=== PATIENT | female | born 1935 | race Caucasian/White ===

== ENCOUNTER → 2016-09-20 | Outpatient (CLI) | payer MEDICARE, OTHER ==
[~2016-09-20] MED LIST: DIPH1TAB36 PO; DULO1CAP3 PO; FERR1TAB36 PO; GABA100C4 PO; GABA300C5 PO; HYDR-3516 PO; LISI-519 PO; MISC-163; NEPHRO PO; UMEC1AER INH; VITA2000 PO; WALKER WHEELS/F1 MIS; XARE10TA PO
[2016-09-20 08:41] LABS: AUTOMATED NEUTROPHIL # 5.6 TH/MM3 (1.8-7.7); BASOPHIL % 0.5 % (0.0-2.0); EOSINOPHIL # 0.1 TH/MM3 (0-0.4); EOSINOPHIL % 1.8 % (0.0-4.0); HEMATOCRIT 38.2 % (35.0-46.0); HEMO FLAGS DIFF FINAL; LYMPH % 24.4 % (9.0-44.0); MEAN CELL VOLUME 88.7 FL (80.0-100.0); MEAN CORPUSCULAR HEMOGLOBIN 29.9 PG (27.0-34.0); MEAN CORPUSCULAR HGB CONC 33.7 % (32.0-36.0); MONO % 6.1 % (0.0-8.0); NEUT % 67.2 % (16.0-70.0); PLATELET COUNT 393 TH/MM3 (150-450); RED BLOOD COUNT 4.31 MIL/MM3 (4.00-5.30); WHITE BLOOD COUNT 8.3 TH/MM3 (4.0-11.0)
[2016-09-20 08:50] LABS: INTERNATIONAL NORMALIZED RATIO 1.1 RATIO
[2016-09-20 09:18] LABS: BACTERIA, URINE MANY /hpf; BLOOD, URINE NEG (NEG); COMMENT (UR) CATH-CULTURE IND; CULTURE IF INDICATED CATH CULTURE IND; GLUCOSE,URINE NEG (NEG); HYALINE CAST, URINE 4 /lpf (RARE); KETONE, URINE NEG (NEG); MUCUS URINE FEW /lpf (OCC); NITRITE,URINE NEG (NEG); SQUAMOUS EPITHELIAL CELL URINE 1 /hpf (0-5); URINE COLOR YELLOW (YELLW/STRAW)
[2016-09-20 09:32] LABS: BICARBONATE 27.3 MEQ/L (21.0-32.0)
== END ==
LOC: CPRE 07:46
PROVIDERS: ATTEND Orthopaedic Surgery Orthopaedic Surgery of the Spine
DX: Z01.810 Encounter for preprocedural cardiovascular examination (principal); Z01.812 Encounter for preprocedural laboratory examination; Z01.818 Encounter for other preprocedural examination; Z79.01 Long term (current) use of anticoagulants; M16.11 Unilateral primary osteoarthritis, right hip; B96.20 Unspecified Escherichia coli [E. coli] as the cause of diseases classified elsewhere; R82.99 Other abnormal findings in urine
CPT/HCPCS: 36415; 80048; 81001; 85025; 85610; 85730; 87077; 87086; 87186

== ENCOUNTER 2016-09-30 15:45 | Inpatient (IN) | payer MEDICARE, OTHER ==
[~2016-09-30] VITALS: Ht 154.9 cm; Wt 68.0 kg
[~2016-09-30 15:45] MED LIST changes: -HYDR-3516 PO; -MISC-163; -WALKER WHEELS/F1 MIS; -XARE10TA PO
[2016-10-01] MEDS ORDERED: INSULIN HUMAN REGULAR 1,000 UNITS/10 ML VIAL SQ PRN (06:00)
[2016-10-01] MEDS ORDERED: LACTATED RINGER'S 1000 ML IV PRN (06:00)
[2016-10-01] MEDS ORDERED: ceFAZolin 2 GM PREMIX 50 ML IV SCH (06:00)
[2016-10-01] MEDS ORDERED: CHLORHEXIDINE GLUCONATE 2 % 1 PACK (2 CLOTHS) TOPICAL PRN (06:00)
[2016-10-01] MEDS ORDERED: VANCOMYCIN 1000 MG/NS 250 ML (for <70 kg) IV SCH ×2 (06:00)
[2016-10-01] MEDS ORDERED: TRANEXAMIC ACID INJ 590 MG in SODIUM CHLORIDE 0.9% INJ 100 ML IV SCH (06:00)
[2016-10-01] MEDS ORDERED: EXPAREL PERI-ARTICULAR INJECTION (TOTAL VOL. 60 ML) P-ARTICULR SCH ×2 (06:00)
[2016-10-01] MEDS ORDERED: SODIUM CHLORID 0.9% 500 ML IV PRN (06:00)
[2016-10-01] MEDS ORDERED: POVIDONE IODINE 7.5% SCRUB 118 ML BOTTLE TOPICAL SCH (06:00)
[2016-10-01] MEDS ORDERED: METOPROLOL TARTRATE 25 MG TAB PO PRN (06:00)
[2016-10-01] MEDS ORDERED: POVIDONE IODINE 5% (ANTISEPSIS KIT) 4 APPLICATIONS EACH NARE PRN (06:00)
[2016-10-01 06:20] VITALS: BP 142/71; PULSE 78; RESP 20; TEMP 98.2; O2SAT 96
[2016-10-01 06:24] LABS: BLOOD, URINE SMALL (NEG); GLUCOSE,URINE NEG (NEG); KETONE, URINE NEG (NEG); MUCUS URINE FEW /lpf (OCC); NITRITE,URINE NEG (NEG); PH, URINE 6.5 (5.0-8.5); SQUAMOUS EPITHELIAL CELL URINE 2 /hpf (0-5); URINE COLOR YELLOW (YELLW/STRAW)
[2016-10-01 06:25] LABS: COMMENT (UR) CATH-CULT NOT IND; CULTURE IF INDICATED CATH CULTURE NOT IND
[2016-10-01] MEDS ORDERED: GENTAMICIN SULFATE 80 MG/2 ML VIAL ONE (07:39)
[2016-10-01] MEDS ORDERED: MIDAZOLAM HCL 2 MG/2 ML VIAL ONE (08:14)
[2016-10-01] MEDS ORDERED: DEXAMETHASONE SOD PHOS 4 MG/ML VIAL ONE (08:15)
[2016-10-01] MEDS ORDERED: FAMOTIDINE 20 MG/2 ML VIAL ONE (08:15)
[2016-10-01] MEDS ORDERED: ACETAMINOPHEN 1000 MG/100 ML VIAL IV ONE (08:17)
[2016-10-01] MEDS ORDERED: diphenhydrAMINE HCL 50 MG/ML VIAL ONE (08:37)
--- NOTE | 2016-10-01 10:28 | PD.OP ---
cc: Moe Dang MD Operative Report Date of Surgery: October 01, 2016 Preoperative Diagnosis: Osteoarthritis right hip, severe. Protrusio right acetabulum, mild Postoperative Diagnosis: Same Procedure: Right total hip replacement arthroplasty, direct anterior exposure Anesthesia: Gen. Surgeon: Moe Dang Commercial Leasing Manager(s): KASSI Betts Operation and Findings: EBL: 200 cc INDICATION: This patient presents with significant hip pain related to severe osteoarthritis right hip with protrusio.. Despite extensive conservative care this patient continues to be painful and now presents for surgical treatment. NOTE: Christine Betts PA-C was present for the entire surgical procedure as my microbiology lab assistant. In my medical opinion her skill and care was necessary for the proper management of this patient. COMPONENTS: COMPANY: [employer] CUP: [place], 50 mm, 100 series, gription surface LINER: Altrx 32 mm, neutral STEM: [place], size 12, standard offset, hydroxyapatite-coated HEAD: 32 mm, +5, 12/14 taper PROCEDURE: This patient was brought to the operating room and anesthetized in the supine position and positioned on the fracture table with both legs held extended. The right hip and leg was scrubbed with alcohol followed by Hibiclens followed by ChloraPrep and draped sterilely. Antibiotics were given within routine time window and a timeout was done. A 4 inch incision was made starting 2 cm distal and 2 cm lateral to the anterior superior iliac spine. The fascia george was opened longitudinally. The interval between the fascia george and the rectus was opened down to the capsule of the hip joint. Retractors were positioned allowing good visualization of the capsule. This was opened longitudinally and flaps were created. Stay sutures were utilized. Exposure was excellent. The neck was cut at the proper location using fluoroscopy as a guide. The head was removed. Deep retractors were positioned allowing good visualization of the acetabulum. Acetabulum was deepened down to the floor starting with a proper size reamer and reaming up to 49 mm. A trial was utilized. Fluoroscopy was used to check position and confirmed satisfactory alignment. The rim was reamed with a 50 mm reamer and the final cup was positioned in approximately 20 of anteversion and 40-45 of abduction. Position was satisfactory. A single hole eliminator was positioned followed by the final liner. The lifting hook was utilized. The leg was dropped to the floor, maximally externally rotated and brought across the midline. Retractors were positioned. A box osteotome was utilized followed by progressive broaching to the proper stem size. Trial reduction showed excellent alignment and fit. With 60 of external rotation the leg was dropped to the floor without evidence of anterior subluxation. The wound was irrigated. The final stem was inserted and was found to be very stable. The final reduction using the final head. Stability was as previously noted. Intraoperative x-rays were taken. The wound was irrigated copiously. Hemostasis was controlled. Local anesthesia was utilized. The capsule was repaired with #2 Tycron sutures. The fascia george was repaired with running 0 PDS on a loop. Subcutaneous tissue was approximated with 2-0 Vicryl and skin with running intradermal 3-0 Vicryl followed by Steri-Strips. A sterile dressing was applied. The patient was awakened and taken to the recovery room in satisfactory condition. FINDINGS: There was mild protrusio. Bone quality was satisfactory. No complication was appreciated. The final reconstruction was very stable. Moe Dang MD October 01, 2016 10:28
[2016-10-01] MEDS ORDERED: Post-op Orders (for Pharmacy) MISC XX ONE (10:30)
[2016-10-01] MEDS ORDERED: MISCELLANEOUS NURSING INFORMATION XX PRN (10:30)
[2016-10-01] MEDS ORDERED: SODIUM CHLORIDE 0.9% FLUSH 5 ML FLUSH IVF PRN (10:30)
[2016-10-01] MEDS ORDERED: DIPHENHYDRAMINE ACETAMINOPHEN PO PRN (10:30)
[2016-10-01] MEDS ORDERED: MORPHINE SULFATE 30 MG/30 ML PCA IV SCH (10:30)
[2016-10-01] MEDS ORDERED: MORPHINE SULFATE 8 MG/ML INJ IM PRN (10:30)
[2016-10-01] MEDS ORDERED: NALOXONE HCL 0.4 MG/ML AMP IV PRN (10:30)
[2016-10-01] MEDS ORDERED: ACETAMINOPHEN/HYDROcodone 325 MG/5 MG TAB PO PRN (10:30)
[2016-10-01] MEDS ORDERED: MISCELLANEOUS PHARMACY INFORMATION XX ONE (10:30)
[2016-10-01] MEDS ORDERED: XARE10TA PO (10:31)
[2016-10-01] MEDS ORDERED: HYDR-3516 PO (10:31)
[2016-10-01] MEDS ORDERED: DO NOT ADM ANY ANTICOAGULANT DRUGS PRN (11:00)
[2016-10-01] MEDS: LACTATED RINGER'S 1000 ML INJ 1,000 ML IV SCH ×2 (11:10→20:40)
[2016-10-01] MEDS ORDERED: *morphine SULFATE 8 MG/ML PERIprocedure ONLY ONE (11:23)
[2016-10-01] MEDS ORDERED: fentaNYL CITRATE 250 MCG/5 ML AMP ONE (11:38)
[2016-10-01] MEDS ORDERED: LACTATED RINGER'S 1000 ML INJ 1,000 ML IV ONE (12:00)
[2016-10-01] MEDS ORDERED: ONDANSETRON HCL 4 MG/2 ML VIAL IV PUSH ONE (12:00)
[2016-10-01] MEDS ORDERED: PROPOFOL 200 MG/20 ML AMP IV ONE (12:00)
[2016-10-01] MEDS ORDERED: PHENYLEPH/NS 1000 MCG/10 ML SYR IV ONE (12:00)
[2016-10-01] MEDS ORDERED: NEOSTIGMINE 3 MG/3 ML SYR IV ONE (12:00)
[2016-10-01] MEDS ORDERED: ePHEDrine/NS 25 MG/5 ML SYR IV ONE (12:00)
[2016-10-01 12:50] VITALS: BP 126/69; PULSE 78; RESP 18; TEMP 96; O2SAT 97
[2016-10-01] MEDS: PCA - TOTAL MG MORPHINE DELIVERED PER SHIFT SCH ×2 (13:48→20:37)
[2016-10-01 16:00] VITALS: BP 111/54; PULSE 82; RESP 18; TEMP 96.4; O2SAT 99
--- NOTE | 2016-10-01 16:58 | RADRPT ---
EXAM DATE/TIME: 10/01/2016 08:51 [facility] COMPARISON: HIP RIGHT (AP&LAT 2/3VWS) WO AP PELVIS, May 03, 2016, 14:24. INDICATIONS : Right anterior hip replacement. MEDICAL HISTORY : Hypertension. Osteoarthritis. Chronic obstructive pulmonary disease. SURGICAL HISTORY : None. ENCOUNTER: Initial ACUITY: 1 day PAIN SCORE: Non-responsive. LOCATION: Right hip. FINDINGS: 2 intraoperative spot images of the right hip. Total hip prosthesis in place. Alignment within normal limits. CONCLUSION: Total hip prosthesis in place. Alignment within normal limits. Edwar Morrison MD on October 01, 2016 at 16:56 Board Certified Radiologist. This report was verified electronically.
--- NOTE | 2016-10-01 17:59 | HHI.FF ---
Face to Face Verification Diagnosis: (1) Right hip pain (2) Osteoarthritis of right hip Physical Therapy Gait training, Safety evaluation, Transfer training, bed to chair Hip: Total hip, Protocol: Right, Progress to weight bearing Right LE Weight Bearing: WB as tolerated Additional Instructions PT 4-5 days/wk for 2 weeks. WBAT RLE, Anterior SHAHRAM protocol. Walker assist. Gait transfers. Nursing RN Days per Week: 2 x Week(s): 1 Dressing Changes: Do not change dressing Additional Instructions Vitals assessment, dressing assessment - do not change unless saturated. I have seen patient Cristy Acuna on 10/01/16. My clinical findings support the need for the requested home health care services because: Limited ability to care for self High risk of falls I certify that my clinical findings support that this patient is homebound because: Post-op weakness Unsteady gait/balance Maddy Dallas October 01, 2016 17:59
[2016-10-01] MEDS ORDERED: WALKER WHEELS/F1 MIS (18:00)
[2016-10-01 20:30] VITALS: BP 118/58; PULSE 86; RESP 18; TEMP 96; O2SAT 96
[2016-10-01] MEDS: MAGNESIUM HYDROXIDE SUSP 30 ML CUP PO SCH (20:36)
[2016-10-01] MEDS: SODIUM CHLORIDE 0.9% FLUSH 5 ML FLUSH IVF SCH (20:36)
[2016-10-01] MEDS: GABAPENTIN 100 MG CAP PO SCH (20:36)
[2016-10-01] MEDS: GABAPENTIN 300 MG CAP PO SCH (20:36)
[2016-10-01] MEDS: SENNOSIDES 8.6 MG TAB PO SCH (20:37)
[2016-10-01] MEDS ORDERED: ACETAMINOPHEN 500 MG CPLT PO PRN (21:00)
[2016-10-01] MEDS ORDERED: diphenhydrAMINE HCL 25 MG CAP PO PRN (21:00)
[2016-10-02] VITALS (7 sets, daily range): BP systolic 93–136; BP diastolic 43–60; PULSE 74–95; RESP 17–18; TEMP 97.1–99.8; O2SAT 91–96
[2016-10-02] MEDS: PCA - TOTAL MG MORPHINE DELIVERED PER SHIFT SCH ×2 (06:00→14:00)
[2016-10-02 06:22] LABS: HEMATOCRIT 26.5 % (35.0-46.0); REVIEW FLAG FINAL
[2016-10-02] MEDS: MAGNESIUM HYDROXIDE SUSP 30 ML CUP PO SCH ×2 (08:11→21:36)
[2016-10-02] MEDS: GABAPENTIN 100 MG CAP PO SCH ×2 (08:12→21:36)
[2016-10-02] MEDS: FERROUS SULFATE 325 MG (65 MG ELEMENTAL IRON) TAB PO SCH (08:12)
[2016-10-02] MEDS: DULoxetine HCl DR 60 MG CAP PO SCH (08:12)
[2016-10-02] MEDS: ACETAMINOPHEN/HYDROcodone 325 MG/5 MG TAB PO PRN ×3 (08:12→18:49)
[2016-10-02] MEDS: LISINOPRIL 5 MG TAB PO SCH (08:12)
[2016-10-02] MEDS: RIVAROXABAN 10 MG TAB PO SCH (10:00)
--- NOTE | 2016-10-02 10:21 | HHI.DCPOC ---
Discharge Care Plan Diagnosis: (1) Right hip pain (2) Osteoarthritis of right hip Your Health Problems Are: Incision/Drains Swelling Goals to Promote Your Health * To prevent worsening of your condition and complications * To maintain your health at the optimal level Directions to Meet Your Goals Take your medications as prescribed Follow your dietary instruction Follow activity as directed Keep your appointments as scheduled Take your immunizations and boosters as scheduled If your symptoms worsen call your PCP, if no PCP go to Urgent Care Center or Emergency Room Smoking is Dangerous to Your Health. Avoid second hand smoke Call the 24-hour hour crisis hotline for domestic abuse at Maddy Dallas October 02, 2016 10:21
--- NOTE | 2016-10-02 10:22 | HHI.DS ---
Discharge Summary Admission Date October 01, 2016 at 05:33 Discharge Date: October 04, 2016 Admitting Diagnosis see below Diagnosis: (1) Right hip pain Diagnosis: Principal (2) Osteoarthritis of right hip Diagnosis: Principal Procedures Right total hip arthroplasty, direct anterior approach Brief History This is a 81 year old female patien with a history of right hip pain. She sought out medical treatment quite some time ago when her function began to decline. Imaging studies were performed and she was found to have moderate to severe arthritic changes about the right hip. Conservative measures were pursued including use of injections and medications. She continued to decline so surgical treatment was recommended. She presents for right total hip arthroplasty, direct anterior approach. CBC/BMP: 10/02/16 0550 Significant Findings Laboratory Tests Test 10/01/16 10/02/16 06:05 05:50 Urine Turbidity HAZY (CLEAR) Urine Protein 30 mg/dL (NEG-TRACE) Urine Occult Blood SMALL (NEG) Urine Leukocyte Esterase SMALL (NEG) Urine Mucus FEW /lpf (OCC) Hemoglobin 9.3 GM/DL (11.6-15.3) Hematocrit 26.5 % (35.0-46.0) Hospital Course Surgical treatment was performed on the day of admission without complication. She recovered well in PACU and was transferred to the orthopaedic floor. Pain was controlled with IV and oral medications. DVT prophylaxis was initiated pod# 1. She was compliant with all anterior total hip restrictions. After 3 days she was found to be stable and discharged home with home health care. She was given instruction to continue therapy, continue a high fiber diet, continue Xarelto 10mg for 30 days and to hold off on any dressing changes until her 2 weeks follow up. Pt Condition on Discharge: Stable Discharge Disposition: Disch w/ Home Health Serv Discharge Instructions Diet Instructions: As Tolerated, No Restrictions, High Fiber Diet Activities You Can Perform: Weight Bearing as Cj Activities to Avoid: Strenuous Activity Additional Activity Instruc.: Anterior silvia protocol New Medications: 3-in-1 Bedside Toilet (3-in-1 Bedside Toilet) 1 Mis Mis 1 EA .ROUTE DIRECTED #1 EA Walker with Front Wheels (Walker with Front Wheels) 1 Mis Mis 1 EA .ROUTE DIRECTED #1 Ref 0 EA Hydrocodone-Acetaminophen (Hydrocodone-Acetaminophen) 5-325 mg Tab 1 TAB PO Q4H PRN PAIN LESS THAN 5 ON SCALE #50 TAB Rivaroxaban (Xarelto) 10 Mg Tab 10 MG PO Q24H Prevent Blood Clot #25 TAB Continued Medications: Cholecalciferol (Vitamin D3) 2,000 Unit Cap 8000 UNITS PO DAILY Nutritional Supplement #56 Ref 0 CAP Diphenhydramine-Acetaminophen (Tylenol Pm Extra Strength) 25-500 Mg Tab 1 TAB PO HS PRN INSOMNIA Duloxetine DR (Duloxetine DR) 60 Mg Capdr 60 MG PO DAILY #30 Ref 0 CAP Ferrous Sulfate (Iron) 325 Mg Tab 325 MG PO DAILY Take Nutritional Supplement Ref 0 TAB Gabapentin (Gabapentin) 100 Mg Cap 100 MG PO BID #60 Ref 0 CAP Gabapentin (Gabapentin) 300 Mg Cap 300 MG PO HS #30 Ref 0 CAP Lisinopril (Lisinopril) 5 Mg Tab 5 MG PO DAILY Blood Pressure Management #30 Ref 0 TAB Umeclidinium-Vilanterol Inh (Anoro Ellipta Inh) 62.5-25 Mcg/Act Aero 1 PUFF INH DAILY COPD #1 Ref 0 INHALER Vitamin B Cmplx/Vit C/Folic AC (Nephro-Lissette Rx) 1 Tab 2 TAB PO DAILY TAB Maddy Dallas October 02, 2016 10:22
[2016-10-02] MEDS ORDERED: MISC-163 (10:23)
[2016-10-02] MEDS: UMECLIDINIUM 62.5 MCG/VILANTEROL 25 MCG INHALER INH SCH (10:57)
--- NOTE | 2016-10-02 13:07 | PD.ORT.PN ---
Subjective Subjective Remarks Doing well. Struggle last night with some 'staff issues'. She thought her ice pack has leaked but the MEDICARE BILLER told her it hadn't. Apparently it took a while to get a dose of pain medication at one point. She is doing well today. She has moderate right hip and thigh pain. No new radiating leg pain. No cp or sob. Objective Vitals Vital Signs Date Time Temp Pulse Resp B/P Pulse Ox O2 Delivery O2 Flow Rate FiO2 10/02/16 10:18 92 Nasal Cannula 1.00 10/02/16 10:12 95 Nasal Cannula 2.00 10/02/16 09:45 18 10/02/16 08:05 98.7 91 18 108/50 91 10/02/16 06:00 18 10/02/16 04:05 99.8 93 17 136/60 94 10/02/16 00:27 98.8 93 18 112/53 94 10/01/16 21:03 Nasal Cannula 2.00 10/01/16 20:37 18 10/01/16 20:30 96.0 86 18 118/58 96 10/01/16 20:01 2.00 10/01/16 19:03 Nasal Cannula 2.00 10/01/16 16:00 96.4 82 18 111/54 99 I/O 10/01/16 10/01/16 10/01/16 10/02/16 10/02/16 10/02/16 07:00 15:00 23:00 07:00 15:00 23:00 Intake Total 1297 ml 1184 ml Output Total 425 ml 450 ml Balance 872 ml 734 ml Intake Oral 480 ml 360 ml IV Total 817 ml 824 ml Output Urine Total 425 ml 450 ml # Bowel Movements 0 0 Result Diagram: 10/02/16 0550 Procedures Right total hip arthroplasty, direct anterior approach Objective Remarks Sitting up in chair at bedside, NAD VSS RLE Anterior hip dressing c/d/i, mild swelling, no drainage, thigh and calf supple, neg homans +motor at, +sens, +nvi Assessment & Plan Ortho Post Op Day #: 1 Problem List: (1) Right hip pain (2) Osteoarthritis of right hip Assessment and Plan s/p R SHAHRAM, anterior, pod#1 D/C [employer] - change to po pain meds. Hold dressing changes unless saturated. PT - WBAT RLE. Anterior shahram protocol. Xarelto 10mg qd. D/C planning, HHC vs SNF. F2F written. Maddy Dallas October 02, 2016 13:07
[2016-10-02] MEDS: SODIUM CHLORIDE 0.9% FLUSH 5 ML FLUSH IVF SCH (21:00)
[2016-10-02] MEDS: SENNOSIDES 8.6 MG TAB PO SCH (21:37)
[2016-10-02] MEDS: GABAPENTIN 300 MG CAP PO SCH (21:37)
[2016-10-02] MEDS: LACTATED RINGER'S 1000 ML INJ 1,000 ML IV SCH (21:38)
[2016-10-03] VITALS (7 sets, daily range): BP systolic 101–119; BP diastolic 50–56; PULSE 64–101; RESP 17–19; TEMP 96.7–97.6; O2SAT 90–96
[2016-10-03] MEDS: ACETAMINOPHEN/HYDROcodone 325 MG/5 MG TAB PO PRN ×4 (01:23→20:08)
[2016-10-03] MEDS: UMECLIDINIUM 62.5 MCG/VILANTEROL 25 MCG INHALER INH SCH (08:00)
[2016-10-03] MEDS: FERROUS SULFATE 325 MG (65 MG ELEMENTAL IRON) TAB PO SCH (08:01)
[2016-10-03] MEDS: MAGNESIUM HYDROXIDE SUSP 30 ML CUP PO SCH ×2 (08:01→20:07)
[2016-10-03] MEDS: DULoxetine HCl DR 60 MG CAP PO SCH (08:01)
[2016-10-03] MEDS: LISINOPRIL 5 MG TAB PO SCH (08:02)
[2016-10-03] MEDS: GABAPENTIN 100 MG CAP PO SCH ×2 (08:02→20:07)
[2016-10-03] MEDS: SODIUM CHLORIDE 0.9% FLUSH 5 ML FLUSH IVF SCH ×2 (08:09→20:08)
[2016-10-03] MEDS: RIVAROXABAN 10 MG TAB PO SCH (08:09)
--- NOTE | 2016-10-03 09:23 | PD.ORT.PN ---
Subjective Subjective Remarks She continues to do well. Her biggest complaint this morning is that 'her bed isn't high enough to reach her food'. She really speaks little about her hip. She notes mild swelling. No new radiating leg pain. No other questions or concerns. We discussed pros and cons of discharge home w hhc versus SNF. Objective Vitals Vital Signs Date Time Temp Pulse Resp B/P Pulse Ox O2 Delivery O2 Flow Rate FiO2 10/03/16 08:00 97.6 88 18 116/56 92 10/03/16 04:00 96.7 64 17 110/56 96 10/03/16 00:00 97.0 91 17 108/53 91 10/02/16 19:30 97.7 92 17 119/56 91 10/02/16 19:11 Nasal Cannula 2.00 10/02/16 16:00 97.3 74 18 106/48 94 10/02/16 14:45 18 10/02/16 14:00 18 10/02/16 13:17 Nasal Cannula 2.00 10/02/16 12:00 97.1 95 18 93/43 96 10/02/16 10:18 92 Nasal Cannula 1.00 10/02/16 10:12 95 Nasal Cannula 2.00 I/O 10/02/16 10/02/16 10/02/16 10/03/16 10/03/16 10/03/16 07:00 15:00 23:00 07:00 15:00 23:00 Intake Total 1184 ml 600 ml 480 ml 240 ml Output Total 450 ml Balance 734 ml 600 ml 480 ml 240 ml Intake Oral 360 ml 600 ml 480 ml 240 ml IV Total 824 ml Output Urine Total 450 ml # Voids 1 2 2 # Bowel Movements 0 0 0 0 Result Diagram: 10/02/16 0550 Procedures Right total hip arthroplasty, direct anterior approach Objective Remarks Sitting up in bed, NAD VSS RLE Anterior hip dressing c/d/i, mild swelling, no drainage, thigh and calf supple, neg homans +motor at, +sens, +nvi Assessment & Plan Ortho Post Op Day #: 2 Problem List: (1) Right hip pain (2) Osteoarthritis of right hip Assessment and Plan s/p R SHAHRAM, anterior, pod#2 Ortho stable. Pain well controlled. Continue PO pain meds as needed. Hold dressing changes unless saturated. PT - WBAT RLE. Anterior shahram protocol. Xarelto 10mg qd. Stable for d/c home w hhc later this afternoon after PT. F/U in 2 weeks as scheduled. F2F written. Maddy Dallas October 03, 2016 09:22
[2016-10-03] MEDS: LACTATED RINGER'S 1000 ML INJ 1,000 ML IV SCH (12:24)
[2016-10-03] MEDS: BISACODYL 10 MG SUPP RECTAL PRN (18:16)
[2016-10-03] MEDS: GABAPENTIN 300 MG CAP PO SCH (20:07)
[2016-10-03] MEDS: SENNOSIDES 8.6 MG TAB PO SCH (20:07)
[2016-10-04] VITALS: BP 115/45; PULSE 90; RESP 19; TEMP 98.1; O2SAT 95
[2016-10-04] MEDS: LACTATED RINGER'S 1000 ML INJ 1,000 ML IV SCH ×2 (00:54→13:24)
[2016-10-04 04:00] VITALS: BP 92/57; PULSE 88; RESP 17; TEMP 96.2; O2SAT 92
--- NOTE | 2016-10-04 07:41 | PD.ORT.PN ---
Subjective Subjective Remarks She did well last night. No new complaints. Ready to go home today. No new CP or SOB. Objective Vitals Vital Signs Date Time Temp Pulse Resp B/P Pulse Ox O2 Delivery O2 Flow Rate FiO2 10/04/16 04:00 96.2 88 17 92/57 92 10/04/16 00:00 98.1 90 19 115/45 95 10/03/16 21:00 Nasal Cannula 2.00 10/03/16 19:00 97.2 101 19 119/50 90 10/03/16 18:48 Nasal Cannula 2.00 10/03/16 16:00 97.4 86 18 106/50 96 10/03/16 12:00 96.8 76 18 101/53 96 10/03/16 10:41 93 21 10/03/16 08:00 97.6 88 18 116/56 92 I/O 10/03/16 10/03/16 10/03/16 10/04/16 10/04/16 10/04/16 07:00 15:00 23:00 07:00 15:00 23:00 Intake Total 240 ml 480 ml 480 ml 240 ml Balance 240 ml 480 ml 480 ml 240 ml Intake Oral 240 ml 480 ml 480 ml 240 ml # Voids 2 1 3 2 # Bowel Movements 0 0 1 1 Result Diagram: 10/02/16 0550 Procedures Right total hip arthroplasty, direct anterior approach Objective Remarks Laying in bed, NAD VSS RLE Anterior hip dressing c/d/i, mild swelling, no drainage, thigh and calf supple, neg homans +motor at, +sens, +nvi Assessment & Plan Ortho Post Op Day #: 3 Problem List: (1) Right hip pain (2) Osteoarthritis of right hip Assessment and Plan s/p R SHAHRAM, anterior, pod#3 Ortho stable. Ok to d/c home w hhc later today after PT. PO pain meds as needed. Hold dressing changes unless saturated. PT - WBAT RLE. Anterior shahram protocol. Xarelto 10mg qd. F/U in 2 weeks as scheduled. F2F written. Maddy Dallas October 04, 2016 07:41
[2016-10-04] MEDS: GABAPENTIN 100 MG CAP PO SCH (07:43)
[2016-10-04] MEDS: MAGNESIUM HYDROXIDE SUSP 30 ML CUP PO SCH (07:43)
[2016-10-04] MEDS: LISINOPRIL 5 MG TAB PO SCH (07:44)
[2016-10-04] MEDS: DULoxetine HCl DR 60 MG CAP PO SCH (07:45)
[2016-10-04] MEDS: FERROUS SULFATE 325 MG (65 MG ELEMENTAL IRON) TAB PO SCH (07:45)
[2016-10-04] MEDS: SODIUM CHLORIDE 0.9% FLUSH 5 ML FLUSH IVF SCH (07:46)
[2016-10-04] MEDS: BISACODYL 10 MG SUPP RECTAL PRN (07:46)
[2016-10-04] MEDS: UMECLIDINIUM 62.5 MCG/VILANTEROL 25 MCG INHALER INH SCH (07:47)
[2016-10-04] MEDS: RIVAROXABAN 10 MG TAB PO SCH (07:49)
[2016-10-04 08:00] VITALS: BP 111/43; PULSE 90; RESP 18; TEMP 99; O2SAT 92
[2016-10-04 09:22] VITALS: O2SAT 92
[2016-10-04] MEDS: ACETAMINOPHEN/HYDROcodone 325 MG/5 MG TAB PO PRN ×2 (10:58→15:12)
[2016-10-04 12:00] VITALS: BP 107/52; PULSE 97; RESP 18; TEMP 98; O2SAT 95
[2016-10-04 15:13] VITALS: BP 105/50; PULSE 76
== END 2016-10-04 16:38 | DRG 470 ==
LOC: HSDI 10-01 05:33 → N06A 10-01 12:29
PROVIDERS: ADMIT Orthopaedic Surgery Orthopaedic Surgery of the Spine; ATTEND Orthopaedic Surgery Orthopaedic Surgery of the Spine
PROC: 0SR90JA Replacement of Right Hip Joint with Synthetic Substitute, Uncemented, Open Approach (ICD-10-PCS; principal; 2016-10-01 08:17)
DX: M16.11 Unilateral primary osteoarthritis, right hip (principal); M24.7 Protrusio acetabuli
CPT/HCPCS: 36415; 73502; 76000; 81001; 85014; 85018; 86850; 86900; 86901; 86920; 94150; C1776; C9290; J0131; J0690; J1100; J1200; J1580; J2250; J2270; J2370; J2405; J2710; J3010; J3370; J7050; J7120